=== PATIENT | female | born 1980 | race Two or more races ===

== ENCOUNTER 2019-12-09 14:49 | Outpatient (CLI) | payer OTHER ==
[~2019-12-09] VITALS: Ht 162.6 cm; Wt 66.7 kg
[2019-12-09] MEDS ORDERED: SPRINTEC 28 DA1 EACH (15:17)
== END 2019-12-09 15:20 | disposition home or self-care (01) ==
LOC: OFIC 805 14:49
PROVIDERS: ATTEND Otolaryngology
DX: H93.8X3 Other specified disorders of ear, bilateral (principal); J30.89 Other allergic rhinitis; M26.623 Arthralgia of bilateral temporomandibular joint

== ENCOUNTER 2020-01-30 11:43 | Outpatient (CLI) | payer OTHER ==
[~2020-01-30 11:43] MED LIST: SPRINTEC 28 DA1 EACH
== END 2020-01-30 13:44 | disposition home or self-care (01) ==
LOC: OFIC 805 11:43
PROVIDERS: ATTEND Otolaryngology
DX: J30.89 Other allergic rhinitis (principal); H69.83 Other specified disorders of Eustachian tube, bilateral; M26.623 Arthralgia of bilateral temporomandibular joint